=== PATIENT | male | born 1970 | race Two or more races ===

== ENCOUNTER 2017-07-29 09:07 | Emergency (ER) | payer OTHER ==
[~2017-07-29] VITALS: Ht 175.3 cm; Wt 107.0 kg
[~2017-07-29 09:07] MED LIST: METOPROLOL TART25 GM
[2017-07-29] MEDS ORDERED: METOPROLOL TART50 MG PO (09:27)
== END 2017-07-29 14:18 | disposition home or self-care (01) ==
LOC: ER 09:07
DX: R07.89 Other chest pain (principal)

== ENCOUNTER 2019-11-12 01:08 | Emergency (ER) | payer OTHER ==
[~2019-11-12] VITALS: Ht 175.3 cm; Wt 108.9 kg
[~2019-11-12 01:08] MED LIST changes: +METOPROLOL TART50 MG PO
[2019-11-12] MEDS ORDERED: METFORMIN HCL500 MG (01:16)
[2019-11-12] MEDS ORDERED: TAMS0.4C PO (03:27)
[2019-11-12] MEDS ORDERED: PYRIDIUM200 MG PO (03:27)
[2019-11-12] MEDS ORDERED: KETO10TA2 PO (03:27)
== END 2019-11-12 03:41 | disposition home or self-care (01) ==
LOC: ER 01:08
DX: N20.0 Calculus of kidney (principal); R33.8 Other retention of urine; R10.31 Right lower quadrant pain

== ENCOUNTER 2021-04-13 05:05 | Emergency (ER) | payer OTHER ==
[~2021-04-13] VITALS: Ht 175.3 cm; Wt 106.1 kg
[~2021-04-13 05:05] MED LIST changes: +KETO10TA2 PO; +METFORMIN HCL500 MG; +PYRIDIUM200 MG PO; +TAMS0.4C PO
[2021-04-13] MEDS ORDERED: AVAPRO75 MG (05:25)
[2021-04-13] MEDS ORDERED: KETO10TA2 PO (10:49)
[2021-04-13] MEDS ORDERED: TAMS0.4C PO (10:49)
[2021-04-13] MEDS ORDERED: PYRIDIUM DS200 MG PO (10:49)
[2021-04-13] MEDS ORDERED: STONEX PO (10:49)
== END 2021-04-13 15:15 ==
LOC: ER 05:05
DX: N39.0 Urinary tract infection, site not specified (principal); N20.0 Calculus of kidney

== ENCOUNTER → 2022-08-03 | Emergency (ER) | payer OTHER ==
[~2022-08-03] VITALS: Ht 175.3 cm; Wt 108.4 kg
[~2022-08-03] MED LIST changes: +AVAPRO75 MG; +PYRIDIUM DS200 MG PO; +STONEX PO
== END | disposition home or self-care (01) ==
LOC: ER 17:43
DX: R11.10 Vomiting, unspecified (principal); Z88.8 Allergy status to other drugs, medicaments and biological substances; E11.9 Type 2 diabetes mellitus without complications; Z79.84 Long term (current) use of oral hypoglycemic drugs

== ENCOUNTER 2023-08-22 01:51 | Emergency (ER) | payer OTHER ==
[~2023-08-22] VITALS: Ht 175.3 cm; Wt 106.1 kg
[2023-08-22] MEDS ORDERED: METFORMIN HCL500 MG (02:13)
== END 2023-08-22 03:40 | disposition home or self-care (01) ==
LOC: ER 01:52
DX: K59.01 Slow transit constipation (principal); Z88.1 Allergy status to other antibiotic agents; Z88.8 Allergy status to other drugs, medicaments and biological substances

== ENCOUNTER 2023-10-04 08:26 | Emergency (ER) | payer OTHER ==
[~2023-10-04] VITALS: Ht 175.3 cm; Wt 108.4 kg
[2023-10-04] MEDS ORDERED: AVAPRO75 MG PO (08:30)
[2023-10-04 09:23] LABS: PH,URINE 5.5 (5.0-8.0); URINE APPEARANCE Clear; URINE BILIRRUBIN Negative (NEGATIVE); URINE BLOOD Large; URINE COLOR Yellow; URINE GLUCOSE Negative (NEGATIVE); URINE LEUKOCYTE Small; URINE NITRATE Negative
[2023-10-04 09:24] LABS: HEMATOCRIT 43.3 % (39.0-48.0); HEMOGLOBIN 15.2 g/dL (13-16.00); MEAN CELL VOLUME 88.2 fL (80.0-100.00); MEAN CORPUSCULAR HGB CONC 35.2 g/dl (32.0-36.0); PLATELET COUNT 305 K/uL (150-450); RED CELL DISTRIBUTION WIDTH 13.1 % (11.5-14.5)
[2023-10-04 09:26] LABS: URINE BACTERIA 240.5 uL (0.0-1933); URINE EPITHELIAL CELLS 9.8 uL (0.0-38.8); URINE RBC 429.6 uL (0.0-20.8); URINE WBC 160.3 uL (0.0-23.2)
[2023-10-04 09:36] LABS: URINE PROTEIN 100 (NEGATIVE)
[2023-10-04 10:01] LABS: CALCIUM 9.4 mg/dL (8.5-10.1); CREATININE SERUM 1.01 mg/dL (0.70-1.30); GFR 77.27; POTASSIUM 4.92 mEq/L (3.5-5.1)
== END 2023-10-04 11:33 | disposition home or self-care (01) ==
LOC: ER 08:27
PROVIDERS: General Practice
DX: N23 Unspecified renal colic (principal); E11.9 Type 2 diabetes mellitus without complications; Z79.84 Long term (current) use of oral hypoglycemic drugs; I10 Essential (primary) hypertension; Z88.8 Allergy status to other drugs, medicaments and biological substances; N20.0 Calculus of kidney

== ENCOUNTER 2024-02-27 08:05 | Emergency (ER) | payer OTHER ==
[~2024-02-27] VITALS: Ht 175.3 cm; Wt 108.4 kg
[~2024-02-27 08:05] MED LIST changes: +AVAPRO75 MG PO
[2024-02-27] MEDS ORDERED: METFORMIN HCL500 M2 PO (08:28)
[2024-02-27] MEDS ORDERED: IRBESARTAN75 MG PO (08:29)
[2024-02-27] MEDS ORDERED: TRAMADOL HCL 50 MG TABLET PO ONE (08:45)
[2024-02-27] MEDS ORDERED: CEFTRIAXONE SODIUM 2,000 MG VIAL IM ONE (08:45)
[2024-02-27] MEDS ORDERED: TAMSULOSIN HCL 0.4 MG CAP PO ONE ×2 (08:45→08:50)
[2024-02-27] MEDS ORDERED: CEFTRIAXONE SODIUM 2,000 MG VIAL ONE (08:50)
[2024-02-27] MEDS ORDERED: LIDOCAINE HCL 1% 10ML VIAL ONE (08:51)
[2024-02-27 09:56] LABS: PH,URINE 6.5 (5.0-8.0); URINE APPEARANCE Clear; URINE BILIRRUBIN Negative (NEGATIVE); URINE BLOOD Moderate; URINE COLOR Yellow; URINE GLUCOSE Negative (NEGATIVE); URINE KETONE Negative (NEGATIVE); URINE LEUKOCYTE Small; URINE NITRATE Negative; URINE PROTEIN 30 (NEGATIVE)
[2024-02-27 10:00] LABS: URINE BACTERIA 45.3 uL (0.0-1933); URINE EPITHELIAL CELLS 3.2 uL (0.0-38.8); URINE RBC 109.3 uL (0.0-20.8); URINE WBC 117.5 uL (0.0-23.2)
[2024-02-27 10:04] LABS: HEMOGLOBIN 14.7 g/dL (13-16.00); MEAN CELL VOLUME 88.2 fL (80.0-100.00); MEAN CORPUSCULAR HEMOGLOBIN 30.9 pg (27.00-32.0); PLATELET COUNT 283 K/uL (150-450); RED BLOOD COUNT 4.76 M/uL (4.00-6.00); RED CELL DISTRIBUTION WIDTH 13.1 % (11.5-14.5)
[2024-02-27 10:51] LABS: URINE CAST 0.76 uL (0.0-1.40)
[2024-02-27] MEDS ORDERED: KETO10TA2 PO (11:00)
[2024-02-27] MEDS ORDERED: TAMS0.4C PO (11:00)
== END 2024-02-27 11:07 | disposition home or self-care (01) ==
LOC: ER 08:07
PROVIDERS: General Practice
DX: R10.32 Left lower quadrant pain (principal); N20.0 Calculus of kidney; K76.0 Fatty (change of) liver, not elsewhere classified; E11.9 Type 2 diabetes mellitus without complications; Z79.84 Long term (current) use of oral hypoglycemic drugs; I10 Essential (primary) hypertension; Z88.8 Allergy status to other drugs, medicaments and biological substances

== ENCOUNTER 2024-02-27 16:53 | Emergency (ER) | payer OTHER ==
[~2024-02-27] VITALS: Ht 175.3 cm; Wt 108.4 kg
[~2024-02-27 16:53] MED LIST changes: +IRBESARTAN75 MG PO; +METFORMIN HCL500 M2 PO
[2024-02-27] MEDS ORDERED: HYOSCYAMINE SULFATE 0.125 MG TAB.SUBL ONE (18:12)
[2024-02-27] MEDS ORDERED: MORPHINE SULFATE 4 MG/ML VIAL IV ONE (18:15)
== END 2024-02-27 18:47 | disposition home or self-care (01) ==
LOC: ER 16:54
DX: N20.0 Calculus of kidney (principal); I10 Essential (primary) hypertension; Z88.8 Allergy status to other drugs, medicaments and biological substances; Z79.84 Long term (current) use of oral hypoglycemic drugs

== ENCOUNTER 2025-01-04 11:22 | Emergency (ER) | payer OTHER ==
[~2025-01-04] VITALS: Ht 175.3 cm; Wt 108.4 kg
[2025-01-04 13:11] LABS: BASO % 0.9 % (0.1-1.2); EOS # 0.08 (0.04-0.54); EOS % 0.9 % (0.7-7.0); HEMATOCRIT 41.1 % (40.1-51.0); HEMOGLOBIN 14.3 g/dL (13.7-17.5); LYMPH % 23.2 % (19.3-53.1); MONO # 0.67 (0.24-0.82); MONO % 7.4 % (4.7-12.5); NEUT # 6.07 (1.56-6.13); NEUT % 66.9 % (34.0-71.1); PLATELET COUNT 313 K/uL (163-369); RED BLOOD COUNT 4.76 M/uL (4.63-6.08); RED CELL DISTRIBUTION WIDTH 11.9 % (11.6-14.4)
[2025-01-04 14:06] LABS: ALBUMIN 3.5 gm/dL (3.4-5.0); BILIRUBIN TOTAL 0.61 mg/dL (0.3-1.2); CALCIUM 9.2 mg/dL (8.5-10.1); CREATININE SERUM 0.93 mg/dL (0.70-1.30); GFR 84.67; GLOBULINA 3.3 G/DL (2.4-3.5); POTASSIUM 4.57 mEq/L (3.5-5.1); TOTAL PROTEIN 6.8 gm/dL (6.4-8.2)
[2025-01-04 14:10] LABS: PH,URINE 5.5 (5.0-8.0); URINE APPEARANCE Clear; URINE BILIRRUBIN Negative (NEGATIVE); URINE BLOOD Negative; URINE COLOR Yellow; URINE KETONE Trace (NEGATIVE); URINE LEUKOCYTE Negative; URINE NITRATE Negative; URINE PROTEIN Negative (NEGATIVE)
[2025-01-04 14:13] LABS: URINE BACTERIA 4.8 uL (0.0-1933); URINE EPITHELIAL CELLS 3.7 uL (0.0-38.8); URINE WBC 13.5 uL (0.0-23.2)
[2025-01-04 14:15] LABS: URINE CAST 0.44 uL (0.0-1.40); URINE GLUCOSE 100 MG/DL (NEGATIVE)
== END 2025-01-04 15:31 | disposition home or self-care (01) ==
LOC: ER 11:33
PROVIDERS: General Practice
DX: R73.9 Hyperglycemia, unspecified (principal); Z88.1 Allergy status to other antibiotic agents